=== PATIENT | male | born 1975 ===

== ENCOUNTER 2023-11-05 06:24 | Day surgery (SDC) | payer OTHER ==
[~2023-11-05] VITALS: Ht 170.2 cm; Wt 108.9 kg
[2023-11-05] MEDS ORDERED: fentaNYL citrate 0.05 MG/ML VIAL ONE (07:22)
[2023-11-05] MEDS ORDERED: KETOROLAC 30 MG/ML VIAL ONE (07:25)
[2023-11-05] MEDS: KETOROLAC 30 MG/ML VIAL IVP ONE (07:37)
[2023-11-05] MEDS: LIDOCAINE 2% 100 MG/5 ML UJET TP ONE (07:46)
== END 2023-11-05 08:47 | disposition home or self-care (01) ==
LOC: MDS 06:24 → MMU 06:29 → MDS 08:47
PROVIDERS: ATTEND Internal Medicine Gastroenterology
DX: Z12.11 Encounter for screening for malignant neoplasm of colon (principal); I10 Essential (primary) hypertension; E78.00 Pure hypercholesterolemia, unspecified; E66.9 Obesity, unspecified; Z68.37 Body mass index [BMI] 37.0-37.9, adult; Z85.038 Personal history of other malignant neoplasm of large intestine; Z79.899 Other long term (current) drug therapy; Z98.890 Other specified postprocedural states
CPT/HCPCS: 45378; J1885; J3010